=== PATIENT | female | born 1980 | race Caucasian/White ===

== ENCOUNTER 2022-09-13 10:17 | Outpatient (CLI) | payer OTHER, SELFPAY ==
--- NOTE | 2022-09-13 10:15 | CRLHL7_ITS ---
For Patients: As a result of the Cures Act, medical imaging exams and procedure reports are released immediately into your electronic medical record. You may view this report before your referring provider. If you have questions, please contact your health care provider. BILATERAL SCREENING MAMMOGRAM WITH COMPUTER-AIDED DETECTION AND TOMOSYNTHESIS TECHNIQUE: CC and MLO views were obtained. These mammographic images have been obtained using full-field digital technique. These mammographic images were interpreted with the benefit of computer-aided detection. Breast tomosynthesis was used in this interpretation. COMPARISON FILM: None. This is a baseline study. FINDINGS: The breasts are heterogeneously dense, which may obscure small masses. IMPRESSION: There is no radiographic evidence for malignancy. ASSESSMENT: BI-RADS Category 1: Negative RECOMMENDATION: Routine screening mammogram in 1 year. A lay language report of this examination will be provided to the patient. MARGARET ROSARIO M.D. Diagnostic/Nuclear Medicine Radiologist [email or web address] OLIVA:[email or web address] Transcribed: 09/13/2022, 6:[address]/Dictated by: Margaret Rosario MD @ 09/13/2022 10:47:00 AM (Electronically Signed)
== END 2022-09-13 10:18 | disposition home or self-care (01) ==
LOC: MAMMO 10:18
PROVIDERS: PCP Physician Assistant Medical; Visit Provider Physician Assistant Medical
DX: Z12.31 Encounter for screening mammogram for malignant neoplasm of breast (principal); R92.2 Inconclusive mammogram
CPT/HCPCS: 77063; 77067

== ENCOUNTER 2022-10-04 10:37 | Outpatient (CLI) | payer OTHER, SELFPAY | END 2022-10-04 10:38 | disposition home or self-care (01) | LOC: NFLDREF 10-05 12:16 | PROVIDERS: PCP Physician Assistant Medical; Referring Provider Physician Assistant Medical; Visit Provider Physician Assistant Medical | DX: N92.6 Irregular menstruation, unspecified (principal) | CPT/HCPCS: 84443 ==

== ENCOUNTER 2022-10-09 10:55 | Outpatient (CLI) | payer OTHER, SELFPAY ==
--- NOTE | 2022-10-09 11:00 | CRLHL7_ITS ---
For Patients: As a result of the Century Cures Act, medical imaging exams and procedure reports are released immediately into your electronic medical record. You may view this report before your referring provider. If you have questions, please contact your health care provider. CLINICAL HISTORY: menometrorrhagia Comparison 05/15/2020 TECHNIQUE: 2D wiggins scale and color Doppler images were acquired of the pelvis using a transvaginal approach. FINDINGS: On transvaginal imaging, the myometrium has a heterogeneous echotexture. The uterus measures 8.5 x 4.5 x 5.8 cm. A small fibroid is present within the left uterine fundus measuring 1.5 x 1.2 x 1.7 cm which appears submucosal. The endometrial lining appears somewhat indistinct and measures 5 mm in thickness. The left ovary measures 2.1 x 1.2 x 1.5 cm in size and the right ovary measures 2.0 x 2.0 x 1.2 cm. The ovaries demonstrate normal arterial and venous blood flow on color Doppler analysis. There are no suspicious fluid collections within the cul-de-sac. IMPRESSION: Subtle 1.7 cm left sided submucosal fibroid. Indistinctness of the endometrium which measures 5 millimeters. Dictated by Francisco J Kowalski MD @ 10/09/2022 12:41:22 PM (Electronically Signed)
== END 2022-10-09 10:56 | disposition home or self-care (01) ==
LOC: US 10:56
PROVIDERS: PCP Physician Assistant Medical; Visit Provider Physician Assistant Medical
DX: N92.1 Excessive and frequent menstruation with irregular cycle (principal); D25.0 Submucous leiomyoma of uterus
CPT/HCPCS: 76830

== ENCOUNTER 2023-09-18 10:05 | Outpatient (CLI) | payer OTHER, SELFPAY ==
--- NOTE | 2023-09-18 10:15 | CRLHL7_ITS ---
For Patients: As a result of the Century Cures Act, medical imaging exams and procedure reports are released immediately into your electronic medical record. You may view this report before your referring provider. If you have questions, please contact your health care provider. BILATERAL SCREENING MAMMOGRAM WITH COMPUTER-AIDED DETECTION AND TOMOSYNTHESIS TECHNIQUE: CC and MLO views were obtained. These mammographic images have been obtained using full-field digital technique. These mammographic images were interpreted with the benefit of computer-aided detection. Breast Tomosynthesis was used in this interpretation. COMPARISON FILM: 09/13/22. FINDINGS: The breasts are heterogeneously dense, which may obscure small masses IMPRESSION: There is no radiographic evidence for malignancy. ASSESSMENT: BI-RADS Category 1: Negative RECOMMENDATION: Routine screening mammogram in 1 year. A lay language report of this examination will be provided to the patient. Francisco J Kowalski M.D. Diagnostic Radiologist [email or web address] [email or web address] Transcribed: 2:27 p.ike lewis/Dictated by: Francisco J Kowalski MD @ 09/18/2023 12:20:00 PM (Electronically Signed)
== END 2023-09-18 10:06 | disposition home or self-care (01) ==
LOC: MAMMO 10:05
PROVIDERS: PCP Physician Assistant Medical; Visit Provider Physician Assistant Medical
DX: Z12.31 Encounter for screening mammogram for malignant neoplasm of breast (principal); R92.2 Inconclusive mammogram
CPT/HCPCS: 77063; 77067

== ENCOUNTER 2024-05-06 15:32 | Outpatient (CLI) | payer BC, SELFPAY | END 2024-05-06 15:33 | disposition home or self-care (01) | LOC: NFLDREF 05-09 01:22 | PROVIDERS: PCP Physician Assistant Medical; Referring Provider Physician Assistant Medical; Visit Provider Physician Assistant Medical | DX: F41.9 Anxiety disorder, unspecified (principal); F32.A Depression, unspecified; B00.1 Herpesviral vesicular dermatitis; N92.6 Irregular menstruation, unspecified | CPT/HCPCS: 80053; 80061; 84443 ==

== ENCOUNTER 2024-08-19 14:14 | Outpatient (CLI) | payer BC, SELFPAY | END 2024-08-19 14:15 | disposition home or self-care (01) | LOC: NFLDREF 08-22 14:23 | PROVIDERS: PCP Physician Assistant Medical; Referring Provider Physician Assistant Medical; Visit Provider Physician Assistant Medical | DX: R39.15 Urgency of urination (principal) | CPT/HCPCS: 87086 ==

== ENCOUNTER 2024-10-06 14:40 | Outpatient (CLI) | payer BC, SELFPAY ==
--- NOTE | 2024-10-21 11:43 | W.PM.SLEEP ---
Sleep Study Details Details Interpreting Provider: Jennifer Date of Sleep Study: 10/06/24 Sleep Study Details: STUDY TYPE:? Home unattended ? BMI:? Not recorded ORDERING PROVIDER:? Jennifer INDICATION:? Concern about sleep apnea ? SLEEP SUMMARY:? 204 minutes monitored RESPIRATORY SUMMARY:? AHI 0.6 Low oxygen 92 Snoring none PERIODIC LIMB MOVEMENTS OF SLEEP:? Not recorded CARDIAC:? Range 61-91, mean 75.5 beats per minute IMPRESSION:? Daytime hypersomnolence. This study does not demonstrate clinically significant obstructive sleep apnea. RECOMMENDATION: If sleep disorder strongly suspected repeat study in sleep lab or with a sedative hypnotic agent.
== END 2024-10-06 14:41 | disposition home or self-care (01) ==
LOC: SLEEP 14:41
PROVIDERS: PCP Physician Assistant Medical; Visit Provider Otolaryngology
DX: G47.10 Hypersomnia, unspecified (principal)
CPT/HCPCS: 95806

== ENCOUNTER 2024-11-21 15:50 | Outpatient (CLI) | payer BC, SELFPAY ==
--- NOTE | 2024-11-21 16:00 | CRLHL7_ITS ---
For Patients: As a result of the Century Cures Act, medical imaging exams and procedure reports are released immediately into your electronic medical record. You may view this report before your referring provider. If you have questions, please contact your health care provider. INDICATION: Chronic sinusitis. TECHNIQUE: Sinus CT was performed without the administration of intravenous contrast. COMPARISON: None. FINDINGS: The frontal sinuses are clear. The frontal recesses are patent. The ethmoid air cells are clear. The anterior ethmoidal arteries are well covered by bone. The lamina papyracea, cribriform plate, and fovea ethmoidalis are intact. The right maxillary sinus is clear. Minimal mucosal thickening/secretions in the left maxillary sinus. The ostiomeatal units are patent. The sphenoid sinuses are clear. The sphenoethmoidal recesses are patent. No optic canal or carotid canal dehiscence. The nasal septum is bowed to the left no significant mucosal thickening/secretions in the paranasal sinuses. The sinus drainage pathways. No yash bullosa or paradoxical turbinates. No acute orbital pathology. The maxillary teeth show no abnormal periapical lucencies extending into the floor of the maxillary sinus. The visualized intracranial structures are grossly unremarkable. The mastoid air cells are clear. No acute or aggressive osseous lesions. The visualized soft tissues are within normal limits. IMPRESSION: 1. No significant mucosal thickening/secretions in the paranasal sinuses. The sinus drainage pathways are patent. 2. The nasal septum is bowed to the left. Please note that all CT scans at this facility use dose modulation, iterative reconstruction, and/or weight-based dosing when appropriate to reduce radiation dose to as low as reasonably achievable. Dictated by Jak Pruett MD @ 11/22/2024 3:12:40 PM (Electronically Signed)
== END 2024-11-21 15:51 | disposition home or self-care (01) ==
PROVIDERS: PCP Physician Assistant Medical; Visit Provider Otolaryngology
DX: J32.9 Chronic sinusitis, unspecified (principal)
CPT/HCPCS: 70486

== ENCOUNTER 2024-12-18 11:17 | Outpatient (CLI) | payer BC, SELFPAY ==
[2024-12-18 22:55] LABS: Bacterial Vaginosis* Negative (Negative); Candida glab/krus NOT DETECTED (No Detected)
[2024-12-18 23:23] LABS: Chlamydia DNA Amplified* NOT DETECTED (No Detected); GC DNA Amplified* NOT DETECTED (No Detected)
[2024-12-20 20:28] LABS: HPV Source Cervix
[2024-12-23 12:17] LABS: Pap Test Digital Imaging Done
== END 2024-12-18 11:18 | disposition home or self-care (01) ==
PROVIDERS: PCP Physician Assistant Medical; Visit Provider Registered Nurse
DX: Z12.4 Encounter for screening for malignant neoplasm of cervix (principal); N89.8 Other specified noninflammatory disorders of vagina; N91.5 Oligomenorrhea, unspecified; R35.0 Frequency of micturition
CPT/HCPCS: 81513; 82670; 83001; 84146; 84443; 87086; 87481; 87491; 87591; 87624; 87625; 87661; 88141; 88142; 88175